=== PATIENT | male | born 1995 | race American Indian/Alaskan Native ===

== ENCOUNTER 2017-11-15 23:44 | Inpatient (IN) | payer MEDICAID, OTHER ==
--- NOTE | 2017-11-15 23:51 | ED PDOC ---
Psych Transfer Clearance - Clearance Statement Clearance Statement: Reviewed vital signs. Lab results and transfer papers reviewed by Dr Arce who cleared for transfer. Patient clinically stable for psychiatric admission.
[2017-11-15 23:52] VITALS: O2SAT 99
[2017-11-16] MEDS ORDERED: DiphenhydrAMINE 50 mg/ml Inj IM PRN (00:08)
[2017-11-16] MEDS ORDERED: Alum-Mag Hydrox-Simethicone Susp (30 mL) PO PRN (00:08)
[2017-11-16] MEDS ORDERED: Magnesium Hydroxide Susp 30 ml UD PO PRN (00:08)
[2017-11-16] MEDS ORDERED: Bismuth Subsalicylate 262 mg/15 ml Sus (240 ml) PO PRN (00:10)
--- NOTE | 2017-11-16 00:30 | PCM.BM ---
<NyasiaSilvia Brewer - Last Filed: 11/16/17 00:28> Treatment Plan Problems - Problems identified on initial assessmt Delusions Date Initiated: 11/16/17 Time Initiated: 00:28 Assessment reference: NA Status: Active Altered Sleep Patterns Date Initiated: 11/16/17 Time Initiated: 00:28 Assessment reference: NA Status: Active Treatment assets and liabiliti Patient Assests: cooperative, ADL independent, physically healthy, good support system, negotiates basic needs Patient Liabilities: financial problems, other - Milieu Protocol Maintain good personal hygiene: daily Encourage regular showers, daily Remind patient to perform daily oral care, daily Assist patient to perform ADL's Conduct patient checks and document Observation sheet: Q15 minutes Maintain personal safety: every shift Educate patient to report safety concerns to staff, every shift Monitor environment for contraband/sharps Medication safety: Monitor for expected outcome, potential side effects: every shift, Assess barriers to learning: every shift, Assess readiness for medication education: every shift <Anna Marie Toribio - Last Filed: 11/16/17 16:02> Treatment assets and liabiliti Patient Assests: adapts well, cooperative, ADL independent, physically healthy, good support system, negotiates basic needs, cognitively intact (pt. appears to have some cognitive delays) Patient Liabilities: financial problems, other (pt. unhappy with current living situation-working with [facility] to find alternate housing) Family Contact Family involvement: Family/SO is involved Family contact: Patient agrees to contact, Family has been contacted by patient , Telephone contact initiated by staff Family contact name: (John [phone]) Family contacted how many times per week?: 2 Family contact comment: Pension Fund Manager placed call to patients mother ([facility] [phone]) to discuss patients progress on 3NP, obtain further necessary collateral and address family concerns. Phone rang without option for radio news writer to leave voicemail or call back number. Pension Fund Manager to attempt call at later time. - Outside Agency Agency 1 Care involvment: Following patient during stay, Other Agency contact name: [facility] Agency contact number: ([phone]) - Goals for Treatment Patient goals for treatment: Patient to continue stabilization on 3NP through medication management and group/supportive therapy. Patient to be encouraged to attend groups regularly to promote self-awareness,compliance, and improve insight, coping skills and self-esteem. Patient to be provided with referral for appropriate level of aftercare to reduce risk of future hospitalizations and ensure safety in the community. Discharge/Continuing Care - Education Needs Education Needs: Family Medication, Family Coping Skills, Family Community resources, Family Aftercare Safety Plan, Patient Medication, Patient Coping Skills, Patient Community resources, Patient Aftercare Safety Plan - Discharge Discharge Criteria: Tolerates medication w/o severe side effects, Free of Suicidal thoughts, Free of paranoid thoughts, Normal sleep pattern, Reduction of target symptoms Discharge to:: Home, With Family, Other ([facility]) <Tramaine Chen - Last Filed: 11/17/17 10:41> Discharge/Continuing Care - Additional Comments 11/17/17 10:42 Pt was able to express that he is less paranoid and that his mood is better. Pt' s thought process seemed more logical and he was better able to concentrate on the conversation and was able to discuss his linkage to [facility] and talk about the last time they visited with him. Pt was fixated on the eggs he ate for breakfast and how he feels they made him feel nauseous. - Treatment Team Participation Discussed with Family/SO: No Was Patient/Family/SO present at Treatment Team Meeting: Yes <Vannesa Zuniga - Last Filed: 11/21/17 11:23> - Diagnosis (1) Paranoid Status: Acute Interventions: psychotherapy, pharmacotherapy 11/21/17 11:22
[2017-11-16 09:19] LABS: T4 5.75 ug/dl (5.5-11.0)
--- NOTE | 2017-11-16 12:47 | PCM.PSYCH ---
Initial Psychiatric Evaluation - Initial Psychiatric Evaluation Legal Status: Capacity Chief Complaint (in patient's own words): I was feeling paranoid / pt is a transfer from [facility] Patient's Reaction to Hospitalization: pt requested help History of Present Illness and Precipitating Events: pt with previous psychiatric diagnosis of schizoaffective disorder bipolar type , multiple inpatient hospitalizations, pt reportedly compliant with medications zyprexa 10mg started to experience paranoid delusions feeling that people on the street are after him and want to hurt him, pt presented to ER seeking help pt reported feeling depressed as he is unable to hold a job and because he continues to live with his mother and unable to be self dependent pt reported decreased sleep , no changes in appetite denied manic symptoms, denied suicidal or homicidal ideations denied perceptual disturbances Current Medications: Active Medications Generic Name Dose Route Start Last Admin Trade Name Freq PRN Reason Stop Dose Admin Acetaminophen 650 mg 11/16/17 00:08 Tylenol 325mg Tab PO Q4 PRN pain level 4-7 Al Hydrox/Mg Hydrox/Simethicone 30 ml 11/16/17 00:08 Maalox Plus 30 Ml PO Q4 PRN Dyspepsia Aripiprazole 10 mg 11/16/17 10:15 11/16/17 11:40 Abilify PO 10 mg DAILY TAIWO Administration Bismuth Subsalicylate 524 mg 11/16/17 00:10 Pepto-Bismol PO Q4H PRN Diarrhea Diphenhydramine HCl 50 mg 11/16/17 00:08 Benadryl IM Q6 PRN Extrapyramidal S/S Unable PO Diphenhydramine HCl 50 mg 11/16/17 00:08 Benadryl PO Q6 PRN Extrapyramidal Symptoms Diphenhydramine HCl 50 mg 11/16/17 00:10 Benadryl PO HS PRN Sleep Haloperidol 5 mg 11/16/17 00:08 Haldol PO Q4 PRN Agitation Haloperidol Lactate 5 mg 11/16/17 00:08 Haldol IM Q4 PRN Agitation, Unable to Take PO Lorazepam 2 mg 11/16/17 00:08 Ativan IM Q4 PRN Anxiety/Agitation,Unable PO Lorazepam 2 mg 11/16/17 00:08 Ativan PO Q4 PRN Anxiety/Agitation Magnesium Hydroxide 30 ml 11/16/17 00:08 Milk Of Magnesia PO HS PRN Constipation Oxcarbazepine 300 mg 11/16/17 10:15 11/16/17 11:40 Trileptal PO 300 mg BID TAIWO Administration Past Psychiatric History - Past Psychiatric History Explanation of prior treatment: multiple inpatient hospitalizations since age 13 , diagnosis of schizoaffective disorder History of ETOH/Drug Use: pt denied History of Family Illness: pt denied Pertinent Medical Hx (Current Medical&Sleep Prob, Allergies): Allergies Allergy/AdvReac Type Severity Reaction Status Date / Time No Known Allergies Allergy Verified 11/15/17 23:45 Mental Status Examination - Personal Presentation Personal Presentation: Looks stated age - Affect Affect: Constricted - Motor Activity Motor Activity: Calm - Reliability in Providing Information Reliability in Providing Information: Poor, due to alteration in thoughts - Speech Speech: Relevant - Mood Mood: Depressed, Anxious - Formal Thought Process Formal Thought Process: Paranoia - Hallucinations/Delusions Additional comments: pt denied perceptual disturbances, non elicited - Obsessions/Compulsions Obsessions: No Compulsions: No - Cognitive Functions Orientation: Person, Place Sensorium: Alert Attention/Concentration: Easily distracted Abstract Thinking: [place] Estimate of Intelligence: Below average Judgement: Imparied, as evidence by: Poor judgement - Risk Risk: Diminished functioning - Strength & Assets Inventory Strength & Assets Inventory: Family support - Limitations Additional comments: unemployed DSM 5 DX - DSM 5 DSM 5 Diagnosis: schizoaffective disorder bipolar - Recommended/Plan of Treatment Treatment Recommendations and Plan of Treatment: start abilify 10mg daily with plan to uptitrate start trileptal 300mg bid group and supportive therapy Prognosis: guarded Discharge Plan and Discharge Criteria: pt no longer experiencing paranoid delusions
--- NOTE | 2017-11-16 15:39 | CP.PCM.CON ---
History of Present Illness - History of Present Illness History of Present Illness: 22 yo male with history of Bipolar DO admitted to psyche unit as a transfer from [facility] because of worsening depression and paranoid delusions. Review of Systems - Review of Systems All systems: reviewed and no additional remarkable complaints except (from those mentioned above) Past Patient History - Infectious Disease Hx of Infectious Diseases: None - Tetanus Immunizations Tetanus Immunization: Unknown - Past Medical History & Family History Past Medical History?: No Past Family History: Reviewed and not pertinent - Past Social History Smoking Status: Never Smoked Alcohol: None Drugs: Denies Home Situation {Lives}: With Family - CARDIAC Hx Cardiac Disorders: No - PULMONARY Hx Respiratory Disorders: No - NEUROLOGICAL Hx Neurological Disorder: No - HEENT Hx HEENT Problems: No - RENAL Hx Chronic Kidney Disease: No - ENDOCRINE/METABOLIC Hx Endocrine Disorders: No - HEMATOLOGICAL/ONCOLOGICAL Hx Blood Disorders: No - INTEGUMENTARY Hx Dermatological Problems: No - MUSCULOSKELETAL/RHEUMATOLOGICAL Hx Musculoskeletal Disorders: No - GASTROINTESTINAL Hx Gastrointestinal Disorders: No - GENITOURINARY/GYNECOLOGICAL Hx Genitourinary Disorders: No - PSYCHIATRIC Hx Substance Use: No - SURGICAL HISTORY Hx Surgeries: No - ANESTHESIA Hx Anesthesia: No Meds Allergies/Adverse Reactions: Allergies Allergy/AdvReac Type Severity Reaction Status Date / Time No Known Allergies Allergy Verified 11/15/17 23:45 - Medications Medications: Current Medications Acetaminophen (Tylenol 325mg Tab) 650 mg PO Q4 PRN PRN Reason: pain level 4-7 Al Hydrox/Mg Hydrox/Simethicone (Maalox Plus 30 Ml) 30 ml PO Q4 PRN PRN Reason: Dyspepsia Aripiprazole (Abilify) 10 mg PO DAILY TAIWO Last Admin: 11/16/17 11:40 Dose: 10 mg Bismuth Subsalicylate (Pepto-Bismol) 524 mg PO Q4H PRN PRN Reason: Diarrhea Diphenhydramine HCl (Benadryl) 50 mg IM Q6 PRN PRN Reason: Extrapyramidal S/S Unable PO Diphenhydramine HCl (Benadryl) 50 mg PO Q6 PRN PRN Reason: Extrapyramidal Symptoms Diphenhydramine HCl (Benadryl) 50 mg PO HS PRN PRN Reason: Sleep Haloperidol (Haldol) 5 mg PO Q4 PRN PRN Reason: Agitation Haloperidol Lactate (Haldol) 5 mg IM Q4 PRN PRN Reason: Agitation, Unable to Take PO Lorazepam (Ativan) 2 mg IM Q4 PRN PRN Reason: Anxiety/Agitation,Unable PO Lorazepam (Ativan) 2 mg PO Q4 PRN PRN Reason: Anxiety/Agitation Last Admin: 11/16/17 15:30 Dose: 2 mg Magnesium Hydroxide (Milk Of Magnesia) 30 ml PO HS PRN PRN Reason: Constipation Oxcarbazepine (Trileptal) 300 mg PO BID [facility] Last Admin: 11/16/17 11:40 Dose: 300 mg Physical Exam - Constitutional Appears: No Acute Distress - Head Exam Head Exam: ATRAUMATIC - Eye Exam Eye Exam: absent: Scleral icterus - ENT Exam ENT Exam: Mucous Membranes Moist - Neck Exam Neck exam: Negative for: Meningismus - Respiratory Exam Respiratory Exam: absent: Rhonchi, Wheezes, Respiratory Distress - Cardiovascular Exam Cardiovascular Exam: REGULAR RHYTHM, +S1, +S2 - GI/Abdominal Exam GI & Abdominal Exam: Soft. absent: Tenderness - Rectal Exam Rectal Exam: Deferred - Extremities Exam Extremities exam: Negative for: calf tenderness, pedal edema - Back Exam Back exam: absent: tenderness - Neurological Exam Neurological exam: Alert, Oriented x3 - Psychiatric Exam Psychiatric exam: Normal Affect - Skin Skin Exam: Dry, Intact Results - Vital Signs Recent Vital Signs: Last Vital Signs Temp 98.1 F 11/16/17 09:00 Pulse 78 11/16/17 09:00 Resp 18 11/16/17 09:00 BP 158/73 H 11/16/17 09:00 Pulse Ox 99 11/15/17 23:45 - Labs Labs: Laboratory Results - last 24 hr 11/16/17 11/16/17 08:11 08:11 Hemoglobin A1c 5.3 Triglycerides 34 Cholesterol 114 LDL Cholesterol Direct 60 HDL Cholesterol 40 Thyroxine (T4) 5.75 TSH 3rd Generation 1.26 Assessment & Plan (1) Depression Status: Acute Comment: psyche is managing
[2017-11-17] MEDS ORDERED: Trimethobenzamide 200 mg/2 mL Inj IM ONE (11:30)
--- NOTE | 2017-11-17 14:19 | PCM.PYCHPN ---
Psychiatric Progress Note - Psychiatric Progress Note Patient seen today, length of contact: pt evaluated discussed with team chart reviewed Patient Chief Complaint: I am less paranoid today Problems Identified/Issues Discussed: pt seen in treatment team, presenting with disorganized speech and thought process, pt observed to continue to be paranoid on the unit towards other patients, pt denied any current command hallucinations, denied suicidal or homicidal ideations pt noted to have episodes of vomiting, possible side effect of trileptal will discontin ue trileptal and uptitrate abilify gradually no reported changes in sleep Medical Problems: multiple inpatient hospitalizations since age 13 , diagnosis of schizoaffective disorder DSM 5 Symptoms Update: schizophrenia Mental Status Examination - Cognitive Function Orientation: Person, Place Attention: WNL Concentration: WNL Association: Loose Fund of Knowledge: Poor Decription of patient's judgement and insights: partial insight and poor judgment - Mood Mood: Depressed, Anxious - Affect Affect: Constricted - Speech Speech: Appropriate - Formal Thought Process Formal Thought Process: Paranoia, Circumstantial Psychotic Thoughts and Behaviors: pt presenting with delusions of persecution denied any current perceptual disturbances - Suicidal Ideation Suicidal Ideation: No - Homicidal Ideation Homicidal Ideation: No Goal/Treatment Plan - Goal/Treatment Plan Need for Continued Stay: Severe depression anxiety, Discharge may exacerbated symptoms Progress Toward Problem(s) and Goals/Treatment Plan: increase abilify to 15mg daily with plan to uptitrate discontinue trileptal group and supportive therapy social problems specialist will contact [facility] team for discharge planning Estimated Date of D/C: 11/21/17
--- NOTE | 2017-11-18 11:24 | PCM.PYCHPN ---
Psychiatric Progress Note - Psychiatric Progress Note Patient seen today, length of contact: pt evaluated discussed with team chart reviewed Patient Chief Complaint: pt is still paranoid and restless but denies hallucinations. denies suicidal thoughts Medical Record Reviewed: Yes Mental Status Examination - Cognitive Function Orientation: Person, Place Attention: WNL Concentration: WNL Association: Loose Fund of Knowledge: Poor - Mood Mood: Depressed, Anxious - Affect Affect: Constricted - Speech Speech: Appropriate - Formal Thought Process Formal Thought Process: Paranoia, Circumstantial - Suicidal Ideation Suicidal Ideation: No - Homicidal Ideation Homicidal Ideation: No Goal/Treatment Plan - Goal/Treatment Plan Need for Continued Stay: Severe depression anxiety, Discharge may exacerbated symptoms Progress Toward Problem(s) and Goals/Treatment Plan: willl continue to titrate abilify to stabilize the mood and psychosis and engage pt in therapy and groups. Disposition plan as per dr brice Estimated Date of D/C: 11/21/17
--- NOTE | 2017-11-20 14:45 | PCM.PYCHPN ---
Psychiatric Progress Note - Psychiatric Progress Note Patient seen today, length of contact: pt evaluated discussed with team chart reviewed Patient Chief Complaint: I am FEELING BETTER Problems Identified/Issues Discussed: pt seen ON UNIT , REPORTED BETTER MOOD AND LESS PARANOID THOUGHT PROCESS, NO REPORTED SIDE EFFECTS OF MEDICATIONS, ATTENDING GROUPS DENIED ANY CURRENT SUICIDAL OR HOMICIDAL IDEATIONS DENIED PERCEPTUAL DISTURBANCES Medical Problems: multiple inpatient hospitalizations since age 13 , diagnosis of schizoaffective disorder Medication Change: Yes (INCREASE ABILIFY) Medical Record Reviewed: Yes Mental Status Examination - Cognitive Function Orientation: Person, Place Attention: WNL Concentration: WNL Association: WNL Fund of Knowledge: Poor - Mood Mood: Anxious, Neutral - Affect Affect: Constricted - Speech Speech: Appropriate - Formal Thought Process Formal Thought Process: Paranoia, Circumstantial - Suicidal Ideation Suicidal Ideation: No - Homicidal Ideation Homicidal Ideation: No Goal/Treatment Plan - Goal/Treatment Plan Need for Continued Stay: Severe depression anxiety, Discharge may exacerbated symptoms Progress Toward Problem(s) and Goals/Treatment Plan: increase abilify to 20 mg daily group and supportive therapy healthcare social worker will contact [facility] team for discharge planning Estimated Date of D/C: 11/21/17
[2017-11-21 08:56] VITALS: RESP 18
--- NOTE | 2017-11-21 13:11 | PCM.PYCHPN ---
Psychiatric Progress Note - Psychiatric Progress Note Patient seen today, length of contact: pt evaluated discussed with team chart reviewed Patient Chief Complaint: I am better with abilify Problems Identified/Issues Discussed: pt seen on the unit, attending groups, compliant with medication , reported feeling less paranoid, attending groups, denied any current suicidal or homicidal ideations no reported side effects of medications Medical Problems: multiple inpatient hospitalizations since age 13 , diagnosis of schizoaffective disorder DSM 5 Symptoms Update: schizophrenia Medication Change: No Medical Record Reviewed: Yes Mental Status Examination - Cognitive Function Orientation: Person, Place Attention: WNL Concentration: WNL Association: WNL Fund of Knowledge: Poor - Mood Mood: Neutral - Affect Affect: Constricted - Speech Speech: Appropriate - Formal Thought Process Formal Thought Process: Paranoia, Circumstantial - Suicidal Ideation Suicidal Ideation: No - Homicidal Ideation Homicidal Ideation: No Goal/Treatment Plan - Goal/Treatment Plan Need for Continued Stay: Severe depression anxiety, Discharge may exacerbated symptoms Progress Toward Problem(s) and Goals/Treatment Plan: continue with abilify 20 mg daily group and supportive therapy psychiatric social worker will contact [facility]CT team for discharge planning Estimated Date of D/C: 11/21/17
[2017-11-22 09:25] VITALS: BP 147/85; PULSE 77; TEMP 97.3
--- NOTE | 2017-11-22 11:37 | PCM.PYCHDC ---
Mental Status Examination - Mental Status Examination Orientation: Person, Place, Situation Memory: Intact Mood: Neutral Affect: Constricted Speech: Appropriate Attention: WNL Concentration: WNL Association: WNL Fund of Knowledge: WN Formal Thought Process: Circumstantial Description of patient's judgement and insight: partial insight and poor judgment Psychotic Thoughts and Behaviors: pt ondischarge denied any current psychotic symptoms denied any current perceptual disturbances Suicidal Ideation: No Current Homicidal Ideation?: No Discharge Summary - Discharge Note Reason for Hospitalization: pt requested help pt with previous psychiatric diagnosis of schizoaffective disorder bipolar type , multiple inpatient hospitalizations, pt reportedly compliant with medications zyprexa 10mg started to experience paranoid delusions feeling that people on the street are after him and want to hurt him, pt presented to ER seeking help pt reported feeling depressed as he is unable to hold a job and because he continues to live with his mother and unable to be self dependent pt reported decreased sleep , no changes in appetite denied manic symptoms, denied suicidal or homicidal ideations denied perceptual disturbances Consultations:: List each consultation separately and include: 1. Reason for request. 2. Findings. 3. Follow-up Summary of Hospital Course include:: 1. Description of specific treatment plan utilized for patients during their course of treatmen. 2. Summarize the time- course for resolution of acute symptoms and/or regressed behaviors. 3. Describe issues identified and worked on during hospitalization. 4. Describe medication utilized. 5. Describe medical problems identified and treated. 6. Reassessment of suicide risk Summary of Hospital Course: pt on admission was started on abilify , it was uptitrated to 20mg no reported side effects of medications, and thought process, showed gradual clearing of paranoid delusions CBT group and supportive therapy provided on discharge mental status was stable, pt denied suicidal or homicidal ideations denied perceptual disturbances, not danger to self or others - Diagnosis (1) Paranoid Current Visit: Yes Status: Acute - Final Diagnosis (DSM 5) Condition upon Discharge: GOOD DSM 5: schizophrenia Disposition: HOME/ ROUTINE Follow-up Treatment Plan: continue with abilify 20 mg daily group and supportive therapy social service agency director will contact PACT team for discharge planning Prescriptions/Medication Reconciliation: ARIPiprazole [Abilify] 20 mg PO DAILY 30 Days #60 tab - Antipsychotic Medications Pt discharged on 2 or more routine antipsychotic medications: No
== END 2017-11-22 14:41 | disposition home or self-care (01) | DRG 430 ==
LOC: H.ER 23:44 → H.PSYCH 23:50
PROVIDERS: ADMIT Psychiatry & Neurology Psychiatry; ATTEND Psychiatry & Neurology Psychiatry
PROC: GZHZZZZ Group Psychotherapy (ICD-10-PCS; principal; 2017-11-15)
PROC: GZ58ZZZ Individual Psychotherapy, Cognitive-Behavioral (ICD-10-PCS; 2017-11-15)
DX: F25.0 Schizoaffective disorder, bipolar type (principal); F22 Delusional disorders; Z79.899 Other long term (current) drug therapy